=== PATIENT | female | born 1975 | race Hispanic/Latino ===

== ENCOUNTER 2017-05-08 10:43 | Outpatient (CLI) | payer BC ==
--- NOTE | 2017-05-08 15:30 | EKG ---
Test Reason : Blood Pressure : / mmHG Vent. Rate : 082 BPM Atrial Rate : 082 BPM P-R Int : 182 ms QRS Dur : 090 ms QT Int : 384 ms P-R-T Axes : 013 014 028 degrees QTc Int : 448 ms Normal sinus rhythm Normal ECG No previous ECGs available Confirmed by MICHELE RODRIGUEZ ([id number]) on 05/08/2017 3:30:38 PM Referred By: JOVAN Confirmed By:MICHELE RODRIGUEZ
== END 2017-05-08 10:44 | disposition home or self-care (01) ==
LOC: EKG 10:43
PROVIDERS: ATTEND Family Medicine
DX: R01.1 Cardiac murmur, unspecified (principal)
CPT/HCPCS: 93005; 93010; 93306

== ENCOUNTER 2017-08-16 17:00 | Outpatient (CLI) | payer BC ==
[2017-08-16 17:17] LABS: Hemoglobin 12.9 g/dL (12.0-16.0); Mean Corpuscular HGB CONC 33.2 g/dL (32.0-36.0); Mean Corpuscular Hemoglobin 29.2 pg (27.0-31.0); Mean Platelet Volume 8.1 fL (7.4-10.4); Platelet Count 373 thou/uL (130-400); RBC Distribution Width 15.5 % (11.5-14.5); Red Blood Cell (RBC) Count 4.42 mill/uL (4.20-5.40); White Blood Cell (WBC) Count 4.9 thou/uL (4.8-10.8)
[2017-08-16 18:48] LABS: BHCG - Serum Negative (NEGATIVE); Pregs Control Background? CLEAR/WHITE (CLR/WHITE); Pregs Control Bar Appear? YES (CONTROL BAR)
== END 2017-08-16 17:01 | disposition home or self-care (01) ==
LOC: LABBT 17:00
PROVIDERS: ATTEND Obstetrics & Gynecology
DX: Z01.812 Encounter for preprocedural laboratory examination (principal); N92.0 Excessive and frequent menstruation with regular cycle; N85.00 Endometrial hyperplasia, unspecified; D21.9 Benign neoplasm of connective and other soft tissue, unspecified
CPT/HCPCS: 84703; 85027; 86850; 86900; 86901

== ENCOUNTER 2017-08-21 10:21 | Day surgery (SDC) | payer BC ==
[2017-08-16 17:15] VITALS: BMI 41.9
[2017-08-21] MEDS ORDERED: PROPOFOL 200 MG/20 ML VIAL ONE (13:41)
[2017-08-21] MEDS ORDERED: Metoclopramide HCl 10 MG/2 ML VIAL ONE (13:41)
[2017-08-21] MEDS ORDERED: Succinylcholine Chloride 20 MG/ML 10 ml SYRINGE FS ONE (13:41)
[2017-08-21] MEDS ORDERED: Ondansetron HCl/PF 4 MG/2 ML Vial ONE (13:41)
[2017-08-21] MEDS ORDERED: Lidocaine 1% PF 5 ML VIAL ONE (13:41)
[2017-08-21] MEDS ORDERED: ePHEDrine/0.9% NaCl/PF SYRINGE 50 mg/10 ml ONE (13:41)
[2017-08-21] MEDS ORDERED: Fentanyl 100 MCG/2 ML VIAL ONE (14:27)
[2017-08-21] MEDS ORDERED: Promethazine HCl 25 MG/ML VIAL ONE (17:12)
[2017-08-21] MEDS ORDERED: Morphine 4 MG/ML VIAL ONE (17:13)
--- NOTE | 2017-08-22 12:41 | OP ---
PREOPERATIVE DIAGNOSES: 1. Abnormal uterine bleeding. 2. History of endometrial hyperplasia, status post medical treatment with progesterone. 3. Intracavitary uterine fibroid. POSTOPERATIVE DIAGNOSES: 1. Abnormal uterine bleeding. 2. History of endometrial hyperplasia, status post medical treatment with progesterone. 3. Intracavitary uterine fibroid. PROCEDURE: Operative hysteroscopy with partial hysteroscopic morcellation of an intracavitary fibroid and dilation and curettage. SURGEON: Christina Tavares D.O. COMPLICATIONS: None. ESTIMATED BLOOD LOSS: 50 mL. URINE OUTPUT: 30. HYSTEROSCOPIC FLUID DEFICIT: Approximately 1500 mL. FINDINGS: Normal external genitalia, normal vaginal and cervical epithelium. A 12-cm uterus with a 3-4 cm intracavitary fibroid on anterior wall and bilateral patent fallopian tube ostia. Normal thin appearing endometrium. INDICATIONS FOR THE PROCEDURE: Ms. Cobb is a 41-year-old G0 who presented to clinic with abnormal uterine bleeding. Patient had an ultrasound that showed an intracavitary fibroid as well as intramural fibroids. She also underwent an endometrial biopsy in the fall of 2016 showing endometrial hyperplasia without atypia. Patient underwent medical management with oral progesterone followed by progesterone containing IUD, however was able to tolerate, oral progesterone feeling for treatment and also her Mirena IUD was expelled due to the fibroid; therefore she did not take complete therapy. Patient had been counseled to be on her treatment options. She did not want to have hysterectomy. She wanted to preserve her fertility if possible and preferred to have a hysteroscopy with a possible morcellation of the intracavitary fibroid if possible. PROCEDURE IN DETAIL: Patient was brought to the operating room, she was placed under general anesthesia. Patient was placed in dorsal lithotomy position using Guido stirrups. She was prepped and draped in sterile fashion. An official timeout was performed. A single-sided speculum was placed into the vagina. The anterior aspect of the cervix was grasped with single-tooth tenaculum and the cervix was dilated using Narciso dilators in sequential fashion. The 8 mm TruClear hysteroscope was then inserted into the endometrial cavity with the findings stating above. The 8-mm ultra hysteroscopic TruClear blade was inserted. A window lock was performed and then this was activated leading to morcellation of the fibroid. During this process, the hysteroscopic fluid deficit was not appropriately calculated by the True clear system, therefore. it was manually calculated at this time and the hysteroscopic fluid deficit was approximately 1500 mL at best estimate. Therefore, the procedure was aborted at this time as there was approaching necessary stop due to the hysteroscopic deficit. Only approximately 25% of the fibroid was removed. The sharp curettage was performed in the endometrial cavity as well just to assess the endometrium due to history of endometrial hyperplasia; however, clinically does not appear as such, endometrium was very thin. All instruments were removed from the vagina. The patient was placed back in supine position. She was active without difficulty. All counts were correct x2. There were no complications. All details were explained to the family. RAMIRO
== END 2017-08-21 18:50 | disposition home or self-care (01) ==
LOC: SDC 10:21
PROVIDERS: ATTEND Obstetrics & Gynecology
PROC: 0UDB8ZX Extraction of Endometrium, Via Natural or Artificial Opening Endoscopic, Diagnostic (ICD-10-PCS; principal; 2017-08-21)
PROC: 0UB98ZZ Excision of Uterus, Via Natural or Artificial Opening Endoscopic (ICD-10-PCS; principal; 2017-08-21)
DX: D25.1 Intramural leiomyoma of uterus (principal); N80.0 Endometriosis of uterus; N84.0 Polyp of corpus uteri; E03.9 Hypothyroidism, unspecified; E11.9 Type 2 diabetes mellitus without complications; D64.9 Anemia, unspecified; E66.9 Obesity, unspecified; Z68.41 Body mass index [BMI] 40.0-44.9, adult; Z79.4 Long term (current) use of insulin; Z79.899 Other long term (current) drug therapy
CPT/HCPCS: 88305; 96374; 96375; J0131; J2001; J2270; J2405; J2550; J2704; J2765; J3010

== ENCOUNTER 2017-12-22 15:15 | Inpatient (IN) | payer BC ==
[2017-12-22 15:20] VITALS: BMI 41.1
[2017-12-25] MEDS ORDERED: CEFAZOLIN/Water 2 GM/20 ML SYRINGE ONE (09:07)
[2017-12-25] MEDS ORDERED: Famotidine 20 MG TAB ONE (09:11)
[2017-12-25] MEDS ORDERED: Famotidine/PF 20 mg/2ml Vial ONE (09:12)
[2017-12-25] MEDS ORDERED: Ropivacaine HCl/PF 750 ML in Premix Bag 1 BAG NERVE BLCK SCH (09:30)
[2017-12-25] MEDS ORDERED: Fentanyl 100 MCG/2 ML VIAL ONE ×2 (10:03→14:32)
[2017-12-25] MEDS ORDERED: Bupivacaine HCl 0.5%/Epinephrine 1:200,000/PF 30 ml Vial ONE (10:24)
[2017-12-25] MEDS ORDERED: Gabapentin 300 MG CAP ONE (10:48)
[2017-12-25] MEDS ORDERED: ePHEDrine/0.9% NaCl/PF SYRINGE 50 mg/10 ml ONE ×2 (11:05→13:06)
[2017-12-25] MEDS ORDERED: PHENYLEPHRINE-NS 100 MCG/ML 10 ML SYRINGE ONE ×2 (11:05→13:06)
[2017-12-25] MEDS ORDERED: PROPOFOL 200 MG/20 ML VIAL ONE (11:05)
[2017-12-25] MEDS ORDERED: Ondansetron HCl/PF 4 MG/2 ML Vial ONE (11:05)
[2017-12-25] MEDS ORDERED: Phenylephrine HCL 10 MG/ML VIAL ONE (13:06)
[2017-12-25] MEDS ORDERED: Promethazine HCl 25 MG/ML VIAL SLOW IVP PRN (13:07)
[2017-12-25] MEDS ORDERED: Promethazine HCl 25 MG/ML VIAL IM PRN (13:07)
[2017-12-25] MEDS ORDERED: Ondansetron HCl/PF 4 MG/2 ML Vial IVP PRN ×2 (13:07→14:06)
[2017-12-25] MEDS ORDERED: Zolpidem Tartrate 5 MG TAB PO PRN (14:06)
[2017-12-25] MEDS ORDERED: HYDROcodone/Acetaminophen 5/325 mg Tablet PO PRN ×2 (14:06)
[2017-12-25] MEDS ORDERED: diphenhydrAMINE 25 MG CAP PO PRN (14:06)
[2017-12-25] MEDS ORDERED: Bisacodyl 10 MG SUPP PR PRN (14:06)
[2017-12-25] MEDS ORDERED: Simethicone Chewable 80 MG TAB PO PRN (14:06)
[2017-12-25] MEDS ORDERED: Insulin Regular 300 UNITS/3 ML VIAL SC PRN (14:08)
[2017-12-25] MEDS ORDERED: Morphine 4 MG/ML VIAL SLOW IVP PRN (15:00)
[2017-12-25] MEDS: Lactated Ringer's 1,000 ML IV SCH ×2 (17:14→22:26)
[2017-12-25] MEDS: Metoprolol Tartrate 100 MG TAB PO SCH (21:38)
[2017-12-25] MEDS: Ibuprofen 800 MG TAB PO SCH (21:43)
--- NOTE | 2017-12-26 02:12 | OP ---
PREOPERATIVE DIAGNOSES: 1. Abnormal uterine bleeding. 2. Uterine fibroids. 3. History of endometrial hyperplasia with resolution after progesterone therapy. 4. Morbid obesity. 5. Diabetes. POSTOPERATIVE DIAGNOSES: 1. Abnormal uterine bleeding. 2. Uterine fibroids. 3. History of endometrial hyperplasia with resolution after progesterone therapy. 4. Morbid obesity. 5. Diabetes. PROCEDURES: 1. Robotic assisted total laparoscopic hysterectomy with bilateral salpingectomy. 2. Contained extracorporeal morselization using GelTheracos system with applied medical bag. SURGEON: Christina Tavares D.O. PARAPROFESSIONAL AIDE TEACHER: Jenny Milian M.D. ESTIMATED BLOOD LOSS: 200 mL. IV FLUIDS: 2000 mL. URINE OUTPUT: 520 mL. COMPLICATIONS: None. ANESTHESIA: General. FINDINGS: Normal appearing external genitalia, normal vaginal and cervical epithelium, enlarged fibr oid uterus approximately 16 weeks in size, adhesions from the pelvic side wall to the uterus and adne xa. Inflammation noted along the posterior aspect of the uterus to the rectosigmoid colon. Findings suspicious for possible endometriosis. INDICATIONS FOR THE PROCEDURE: Ms. Bryanna Cobb is a 42-year-old G0 with a longstanding history of abnormal uterine bleeding secondary to uterine fibroids. Patient had undergone treatment for benign endometrial hyperplasia with resolution. She later then underwent a dilation and curettage and attem pted hysteroscopic morcellation of the intracavitary fibroid, which was unsuccessful due to limited m orcellation. Patient has been counseled extensively on her options for treatment and desired definit melissa surgical therapy for her bleeding. Using a hysterectomy, the patient was counseled on her option s of an open laparotomy versus minimally invasive surgery using laparoscopic technique was planned ex tracorporeal contained morcellation and she preferred minimally invasive surgery. PROCEDURE IN DETAIL: The patient was brought to the operating room. She was placed under general an esthesia. Patient was placed in dorsal lithotomy position using Guido stirrups and arms were tucked appropriately for robotic surgery. She was prepped and draped in a sterile fashion. An official todd eout was performed. She was given 2 grams of Ancef preoperatively for surgical prophylaxis. Speculu m was placed in the vagina and the anterior aspect of the cervix was grasped using a single-tooth ten aculum and the cervix was dilated using Narciso dilators. The uterus sounded to approximately 12.5 to 1 3 cm. A 12 cm in length and 4 cm cup were used for the GARLAND manipulator and this was appropriately s ecured to the ectocervix. The Guzman catheter was then placed. All instruments were removed from the vagina with the exception of the uterine manipulator. Gloves were changed and attention was turned to the abdominal portion. A supraumbilical incision was made using the scalpel. The Veress needle w as inserted into the peritoneal cavity and the peritoneal cavity was insufflated using carbon dioxide , noting a normal pressure. A 12 mm trocar was then placed through this site. The patient was place d in Trendelenburg position, and the pelvis was evaluated, noting the findings above. Trocar site wa s then extended by extending the fascia to allow for the GelPOINT system. Trocar was then removed. The Donald retractor was then placed and the GelPOINT system was secured, and the abdomen was reinfla belkis. Plant Anatomist ports were placed using 2 and 8 mm robotic nurse practitioner physician assistant ports, one in the right and one in the left lower quadrant and additional nurse practitioner physician assistant was placed in the right aspect using 11 mm port. All were placed under direct visualizations using local anesthetic. The robot was then appropriatel y docked to the patient. Instruments were inserted. The hysterectomy was begun on the left aspect. There were several adhesions from the sigmoid colon that were filmy, which were dissected using both sharp and blunt dissection away from the left pelvic sidewall. The left ureter could not be clearly identified transperitoneally due to transperitoneal fat. The left fallopian tube was then coagulate d and transected and completely removed and intact. The left round ligament was then coagulated mult iple times and transected allowing entrance into the broad ligament and this was carried towards the uterine ovarian ligament, which was coagulated multiple times and also transected and remained hemost atic. The posterior peritoneum was then reflected down towards the level of the uterosacral ligament on the left aspect. The anterior leaf of the broad ligament was undermined and transected, allowing anterior reflection of the bladder on the left aspect and allowing skeletonization of the left uteri ne vessels, which were coagulated multiple times; however, not yet transected. Attention was then tu rned over to the right aspect of the uterus. There are much more adhesions from the right aspect of the uterus to the pelvic sidewall, which were then unable to be dissected using both blunt and sharp dissection. The right salpingectomy was performed working distally to proximally, completely removin g the fallopian tube. The peritoneum was in the broad ligament was then elevated and incised to allo w and release of some of these adhesions and identification of the right round ligament, which was th en coagulated multiple times and transected. The right utero-ovarian ligament was then coagulated as well and transected. Hemostasis was achieved. The broad ligament was then entered on the right asp ect. The dissection anteriorly was performed very meticulously as the adhesions to the pelvic side w all meet the dissection plane slightly more difficult. The posterior peritoneum was then undermined and transected down to the level of the uterosacral ligaments on the right aspect. The attention was turned anteriorly, as the bladder was inferiorly reflected using sharp and blunt dissection. The ri ght uterine vessels were then skeletonized completely. The right uterine vessels were coagulated mul tiple times and then transected. The attention was turned back over to left aspect, where the left u terine vessels were coagulated again and then transected there was a slight bleeding at this aspect o f vagina and the dissection, which required additional cautery along the uterine vessels. The colpot ran was performed in a circumferential fashion until the vaginal and cervical tissue, they were compl etely . The GARLAND manipulator cup was then removed from the specimen through the vagina. Th e pelvis was then irrigated and cleared of all clot and debris. There was some generalized bleeding along the left aspect of the vaginal cuff, which was controlled using a bipolar cautery. The vaginal cuff was then closed in a running fashion using 0 Stratafix suture with a double-layer closure. Aga in, the pelvis was irrigated and cleared of all clot and debris. The vaginal cuff was hemostatic aft er closure. The pedicle sites were also hemostatic. The uterus and cervix were brought down back in to the pelvis. ON-Q pump was appropriately placed into the pelvis. The applied medical bag which wa s already in the abdomen was then opened and the specimen was placed within the bag. The loop of the specimen bag was then carried up through the RawFlow device. The robot was then undocked from the patient. The abdomen was deflated and the trocars were removed. The applied medical bag was pulled up to the center of the Donald retractor and the Donald retractor was then removed and then placed me dially inside the bag to allow for specimen removal. Extracorporeal morcellation was performed using the same technique and removing the entire uterus and cervix. The morcellation took approximately 3 0 minutes to extend the procedure time. The applied medical bag was then removed along with the Donald is retractor and applied medical bag was intact with no signs of perforation or tears. The fascia at the midline incision was closed in a running fashion using 0 Vicryl. The skin was closed using 4-0 Monocryl with Dermabond. The patient was then placed back in supine position. She was extubated wit hout difficulty and transferred to recovery room hemostatically stable condition. All counts were co rrect x2 and there were no complications.
[2017-12-26] MEDS: Ibuprofen 800 MG TAB PO SCH (06:00)
[2017-12-26] MEDS ORDERED: Levothyroxine Sodium 100 MCG TAB PO SCH (06:00)
[2017-12-26 06:05] LABS: #Eosinphils 0.1 thou/uL (0.0-0.7); #Monocytes 0.6 thou/uL (0.11-0.59); #Neutrophils 4.9 thou/uL (1.40-6.50); %Basophils 0.5 % (0.0-1.0); %Eosinophils 0.8 % (0.0-10.0); %Lymphocytes 15.4 % (21.0-51.0); %Monocytes 9.3 % (0.0-10.0); %Neutrophils 73.9 % (42.0-75.0); Hemoglobin 12.3 g/dL (12.0-16.0); Mean Corpuscular HGB CONC 33.5 g/dL (32.0-36.0); Mean Corpuscular Hemoglobin 31.8 pg (27.0-31.0); Mean Corpuscular Volume 94.9 fL (78.0-98.0); Mean Platelet Volume 7.8 fL (7.4-10.4); Platelet Count 273 thou/uL (130-400); RBC Distribution Width 11.8 % (11.5-14.5); Red Blood Cell (RBC) Count 3.88 mill/uL (4.20-5.40); White Blood Cell (WBC) Count 6.7 thou/uL (4.8-10.8)
[2017-12-26 06:15] LABS: Anion Gap 9 mmol/L (10-20); BUN (Urea Nitrogen) 7 mg/dL (7.0-18.7); Calc. Creatinine Clearance 230 mL/min (70-130); Calcium 8.8 mg/dL (7.8-10.44); Carbon Dioxide 28 mmol/L (22-29); Chloride 104 mmol/L (98-107); Estimated GFR-MDRD Greater than 90; Glucose 140 mg/dL (70-105); Potassium 3.1 mmol/L (3.5-5.1); Sodium 138 mmol/L (136-145)
[2017-12-26] MEDS: Lactated Ringer's 1,000 ML IV SCH (06:42)
[2017-12-26] MEDS ORDERED: Potassium Citrate 10 MEQ TAB PO SCH (07:45)
[2017-12-26] MEDS ORDERED: Potassium Chloride 20 MEQ TAB PO SCH (07:45)
[2017-12-26 08:45] VITALS: BP 140/80; TEMP 99.2
[2017-12-26] MEDS ORDERED: Milk Of Magnesia 30 ML UDCUP PO SCH (08:45)
[2017-12-26] MEDS ORDERED: Losartan/Hydrochlorothiazide 100 mg/25 mg Tablet PO SCH (09:00)
[2017-12-26] MEDS ORDERED: Amlodipine 10 MG TAB PO SCH (09:00)
[2017-12-26] MEDS: Metoprolol Tartrate 100 MG TAB PO SCH (09:05)
--- NOTE | 2017-12-26 10:20 | PRG ---
DATE OF SERVICE: 12/26/2017 HISTORY OF PRESENT ILLNESS: This is a 42-year-old female postoperative day #1, status post robotic assisted total laparoscopic hysterectomy with a bilateral salpingectomy and contained extracorporeal morcellation. SUBJECTIVE: The patient reports mild pain is controlled with oral medications and ON-Q pain pump. Denies any vaginal bleeding or discharge. Reports voiding and ambulating without difficulty. Denies any nausea or vomiting. She has not yet passing flatus or bowel movement. OBJECTIVE: VITAL SIGNS: Stable. CARDIOVASCULAR: Regular rate and rhythm. RESPIRATORY: Unlabored breathing. ABDOMEN: Soft, mild distention as appropriate postoperatively. Mild tenderness. Incisions clean, dry, and intact. ON-Q pump appropriately secured. EXTREMITIES: No edema. Negative Homans'. LABORATORY DATA: Normal hemoglobin and hematocrit. Potassium is 3.1, otherwise all labs are within normal range. ASSESSMENT: 1. Postoperative day #1 status post robotic assisted total laparoscopic hysterectomy with bilateral salpingectomy and contained extracorporeal morcellation. 2. Hypokalemia. PLAN: Replace potassium orally this morning. The patient is meeting all requirements for discharge. We will plan to discharge today. Instructed the patient to take stool softeners and p.r.n. laxatives as needed and p.r.n. pain medication. She will be scheduled for 2 week followup appointment. All restrictions reviewed with the patient. RAMIRO
--- NOTE | 2017-12-26 13:44 | DIS ---
DATE OF ADMISSION: 12/25/2017 ADMISSION DIAGNOSES: Pain control status post robotic assisted total laparoscopic hysterectomy with bilateral salpingectomy and contained extracorporeal morcellation. DISCHARGE DIAGNOSES: Pain control status post robotic assisted total laparoscopic hysterectomy with bilateral salpingectomy and contained extracorporeal morcellation. ADMISSION AND DISCHARGE PHYSICIAN: Christina Tavares DO BRIEF HOSPITAL COURSE: Ms. Bryanna Cobb is a 42-year-old female postoperative day #1, status post robotic assisted total laparoscopic hysterectomy with bilateral salpingectomy and extracorporeal morcellation. Intraoperative course was benign. Her postoperative course has also been benign. The patient's pain is controlled with oral medications and ON-Q pain pump. She is voiding and ambulating without difficulty, and tolerating oral intake. She has not yet passed flatus; however, has normoactive bowel sounds. Her labs and vital signs are within normal limits and she is stable for discharge home. DISCHARGE INSTRUCTIONS: 1. Location: Home. 2. Diet: Diabetic diet. 3. Activity Restrictions: Pelvic rest, no heavy lifting, pushing or pulling x6 weeks. 4. Followup: Follow up in 2 weeks. DISCHARGE MEDICATIONS: 1. [place] 5/325 one tablet every 6 hours p.r.n. pain, #30 with 0 refills. 2. Motrin 800 mg 1 tablet every 8 hours p.r.n. pain, #60, 2 refills. MTDD
== END 2017-12-26 09:35 | disposition home or self-care (01) | DRG 742 ==
LOC: SURG A 12-25 08:41 → 3SE 12-25 15:37
PROVIDERS: ADMIT Obstetrics & Gynecology; ATTEND Obstetrics & Gynecology
PROC: 0UT9FZZ Resection of Uterus, Via Natural or Artificial Opening With Percutaneous Endoscopic Assistance (ICD-10-PCS; principal; 2017-12-25)
PROC: 0UT7FZZ Resection of Bilateral Fallopian Tubes, Via Natural or Artificial Opening With Percutaneous Endoscopic Assistance (ICD-10-PCS; 2017-12-25)
PROC: 8E0W4CZ Robotic Assisted Procedure of Trunk Region, Percutaneous Endoscopic Approach (ICD-10-PCS; 2017-12-25)
DX: D25.9 Leiomyoma of uterus, unspecified (principal); Z68.41 Body mass index [BMI] 40.0-44.9, adult; N93.8 Other specified abnormal uterine and vaginal bleeding; E66.01 Morbid (severe) obesity due to excess calories; E11.9 Type 2 diabetes mellitus without complications
CPT/HCPCS: 36415; 36416; 80048; 84702; 85025; 85027; 86850; 86900; 86901; 88307; 93005; 93010; 96374; A4216; J0131; J0670; J1815; J2370; J2405; J2704; J2795; J3010; S0028

== ENCOUNTER 2017-12-22 15:15 | Outpatient (CLI) | payer BC ==
[2017-12-22 17:03] LABS: Hemoglobin 13.6 g/dL (12.0-16.0); Mean Corpuscular HGB CONC 33.8 g/dL (32.0-36.0); Mean Corpuscular Hemoglobin 31.9 pg (27.0-31.0); Mean Corpuscular Volume 94.3 fL (78.0-98.0); Mean Platelet Volume 8.3 fL (7.4-10.4); Platelet Count 344 thou/uL (130-400); RBC Distribution Width 12.2 % (11.5-14.5); Red Blood Cell (RBC) Count 4.26 mill/uL (4.20-5.40); White Blood Cell (WBC) Count 4.2 thou/uL (4.8-10.8)
[2017-12-22 17:21] LABS: Anion Gap 11 mmol/L (10-20); BUN (Urea Nitrogen) 10 mg/dL (7.0-18.7); Calc. Creatinine Clearance 0 mL/min (70-130); Calcium 10.1 mg/dL (7.8-10.44); Carbon Dioxide 28 mmol/L (22-29); Chloride 102 mmol/L (98-107); Estimated GFR-MDRD Greater than 90; Glucose 121 mg/dL (70-105); Potassium 3.2 mmol/L (3.5-5.1); Sodium 138 mmol/L (136-145)
--- NOTE | 2017-12-24 21:19 | EKG ---
Test Reason : Blood Pressure : / mmHG Vent. Rate : 078 BPM Atrial Rate : 078 BPM P-R Int : 178 ms QRS Dur : 086 ms QT Int : 386 ms P-R-T Axes : 016 051 027 degrees QTc Int : 440 ms Normal sinus rhythm Cannot rule out Anterior infarct , age undetermined Abnormal ECG Confirmed by Pippa VINCENT ([id number]) on 12/24/2017 9:19:20 PM Referred By: KALE Confirmed By:Pippa VINCENT
== END 2017-12-22 15:16 | disposition home or self-care (01) ==
LOC: LABBT 15:15
PROVIDERS: ATTEND Obstetrics & Gynecology
DX: Z01.818 Encounter for other preprocedural examination (principal); N93.9 Abnormal uterine and vaginal bleeding, unspecified; D25.9 Leiomyoma of uterus, unspecified
CPT/HCPCS: 80048; 84702; 85027; 86850; 86900; 86901; 93005; 93010

== ENCOUNTER 2019-02-27 07:50 | Outpatient (CLI) | payer BC ==
--- NOTE | 2019-02-27 08:41 | MMO ---
Bilateral MAMMO Bilat Screen [facility]. CLINICAL HISTORY: Patient is 43 years old and is seen for screening. The patient has no family history of breast cancer. The patient has no personal history of cancer. VIEWS: The views performed were: bilateral craniocaudal with tomosynthesis and bilateral mediolateral oblique with tomosynthesis. FILMS COMPARED: The present examination has been compared to a prior imaging study performed at [facility] on 03/29/2016. This study has been interpreted with the assistance of computer-aided detection. MAMMOGRAM FINDINGS: There are scattered fibroglandular densities. There is a new equal density, oval mass with circumscribed margins seen in the MLO view only seen in the outer region of the right breast. Mass may reflected a poorly seen axillary lymph node from the prior exam. In the left breast, there are no suspicious masses, calcifications or areas of architectural distortion. IMPRESSION: NEW MASS IN THE RIGHT BREAST REQUIRES ADDITIONAL EVALUATION. ADDITIONAL PROJECTIONS (RIGHT EXAGGERATED CRANIOCAUDAL WITH TOMOSYNTHESIS AND RIGHT LATEROMEDIAL WITH TOMOSYNTHESIS) ARE RECOMMENDED. AN ULTRASOUND EXAM IS RECOMMENDED IF NEEDED. THE RESULTS OF THIS EXAM WERE SENT TO THE PATIENT. ACR BI-RADS Category 0 - Incomplete: Need additional imaging evaluation. [facility] will notify the patient of the need for additional imaging services. MAMMOGRAPHY NOTE: 1. A negative mammogram report should not delay a biopsy if a dominant of clinically suspicious mass is present. 2. Approximately 10% to 15% of breast cancers are not detected by mammography. 3. Adenosis and dense breasts may obscure an underlying neoplasm. Reported by: FREYA ALBA MD Electonically Signed: [id number]
== END 2019-02-27 07:51 | disposition home or self-care (01) ==
LOC: BICMAMMO 07:50
PROVIDERS: ATTEND Family Medicine
DX: Z12.31 Encounter for screening mammogram for malignant neoplasm of breast (principal); N63.10 Unspecified lump in the right breast, unspecified quadrant
CPT/HCPCS: 77063; 77067

== ENCOUNTER 2019-03-14 08:31 | Outpatient (CLI) | payer BC ==
--- NOTE | 2019-03-14 09:21 | MMO ---
Right Breast MAMMO Unilat Diag [facility]DI RT+BIRD. CLINICAL HISTORY: Patient is 43 years old and is seen for diagnostic exam. The patient has no family history of breast cancer. The patient has no personal history of cancer. VIEWS: The views performed were: right mediolateral oblique spot compression with tomosynthesis; right mediolateral with tomosynthesis; and right exaggerated craniocaudal with tomosynthesis. FILMS COMPARED: The present examination has been compared to prior imaging studies performed at [facility] on 03/29/2016, and at [facility] on 02/27/2019 and 03/14/2019. This study has been interpreted with the assistance of computer-aided detection. MAMMOGRAM FINDINGS: There are scattered fibroglandular densities. There is an equal density, oval mass measuring 10 millimeters with circumscribed margins seen in the posterior central region of the right breast. The mass is not seen on ultrasound. IMPRESSION: MASS IN THE RIGHT BREAST REQUIRES ADDITIONAL EVALUATION. BREAST MRI IS RECOMMENDED. THE RESULTS OF THIS EXAM WERE SENT TO THE PATIENT. ACR BI-RADS Category 0 - Incomplete: Need additional imaging evaluation. [facility] will notify the patient of the need for additional imaging services. MAMMOGRAPHY NOTE: 1. A negative mammogram report should not delay a biopsy if a dominant of clinically suspicious mass is present. 2. Approximately 10% to 15% of breast cancers are not detected by mammography. 3. Adenosis and dense breasts may obscure an underlying neoplasm. Reported by: RANDA CANDELARIO MD Electonically Signed: [id number]
--- NOTE | 2019-03-14 09:27 | ULT ---
LIMITED RIGHT BREAST ULTRASOUND: Date: 03/14/19 PROVIDED CLINICAL HISTORY: Right breast mass. FINDINGS: Sonographic interrogation of the right breast was performed in the region of mammographic concern. No sonographic correlate for the mammographically apparent mass is evident. IMPRESSION: BI-RADS Category 0 - Incomplete. Correlation with breast MRI is recommended. POS: OFF
== END 2019-03-14 08:32 | disposition home or self-care (01) ==
LOC: BICMAMMO 08:31
PROVIDERS: ATTEND Family Medicine
DX: N63.10 Unspecified lump in the right breast, unspecified quadrant (principal)
CPT/HCPCS: G0279